=== PATIENT | male | born 1975 | race Caucasian/White ===

== ENCOUNTER → 2017-03-07 | Outpatient (CLI) | payer SELFPAY ==
--- NOTE | 2017-03-07 15:50 | CT ---
Cardiac calcium scoring Indication: Family history of heart disease. Technique: 3 mm axial images of the heart was performed without IV contrast administration. Calcium scoring was performed utilizing standard calcium scoring protocol. Findings: Heart size is normal. No pericardial effusion. The visualized thoracic aorta is normal in caliber. There is normal morphology of the right and left coronary arteries. No appreciable calcific ation identified within the coronary arteries. Overall the calcium score for the RCA is 2, LAD is 0 and circumflex is 0 with a total calcium score of 2. Based on Agatston calcium score of 2 this is co nsidered minimal plaque and risk of coronary artery disease is very unlikely, less than 10%. Patient is between the 50th and 75 percentile for age and sex. No abnormality identified within visualized lungs. No pleural effusion or pneumothorax. No acute oss eous abnormality. Visualized upper abdomen is unremarkable as well. Impression: 1.Calcium score of 2 is considered minimal identifiable plaque and patient's risk of coronary artery disease is very unlikely, less than 10%. Overall a calcium score of 2 is between the 50th and 75 pe rcentile for patient's age and sex. 2. No incidental nonvascular finding was identified. Reported By:
== END ==
LOC: RAD 12:53
PROVIDERS: ATTEND Internal Medicine
DX: Z13.6 Encounter for screening for cardiovascular disorders (principal)